=== PATIENT | male | born 1980 | race Caucasian/White ===

== ENCOUNTER 2021-12-08 13:58 | Emergency (ER) | payer OTHER, SELFPAY ==
[2021-12-08 14:31] VITALS: BP 181/112; PULSE 108; RESP 24; TEMP 36.7; O2SAT 96; BMI 27.3
--- NOTE | 2021-12-08 14:44 | DI.CT.S_ITS ---
PROCEDURE: CT HEAD/BRAIN WO CON INDICATIONS: Trauma TECHNIQUE: Noncontrast 4.5 mm thick angled axial sections acquired from the foramen magnum to the vertex, with coronal and sagittal reformats. For radiation dose reduction, the following was used: automated exposure control, adjustment of mA and/or kV according to patient size. COMPARISON: None. FINDINGS: Image quality: Excellent. CSF spaces: Basal cisterns are patent. No extra-axial fluid collections. Ventricles are normal in size and shape. Brain: No midline shift. No intracranial masses or hemorrhage. Hollins-white matter interface is normal. Skull and face: Calvarium and visualized facial bones are intact, without suspicious lesions. Sinuses: Visualized sinuses and mastoids are clear. IMPRESSION: No acute intracranial abnormality. Dictated by: Corey Silva M.D. on 12/08/2021 at 14:13 Approved by: Corey Silva M.D. on 12/08/2021 at 14:15
--- NOTE | 2021-12-08 14:44 | DI.CT.S_ITS ---
PROCEDURE: CT CERVICAL SPINE WO CON INDICATIONS: Trauma TECHNIQUE: Noncontrast 3 mm thick sections acquired from the skull base to the T4 level. Sagittal and coronal reformats were then constructed. For radiation dose reduction, the following was used: automated exposure control, adjustment of mA and/or kV according to patient size. COMPARISON: None. FINDINGS: Image quality: Excellent. Bones: No acute fractures or dislocations. Visualized superior ribs are intact. Mild disc space narrowing degenerative endplate changes are seen at the C5-6 and C6-7 levels. There is mild multilevel facet and uncovertebral joint hypertrophy. Soft tissues: Prevertebral soft tissues are normal in thickness. No paravertebral hematomas. No apical pneumothoraces. IMPRESSION: No acute cervical spine fracture or subluxation. Mild spondylosis. Dictated by: Corey Silva M.D. on 12/08/2021 at 14:15 Approved by: Corey Silva M.D. on 12/08/2021 at 14:17
--- NOTE | 2021-12-08 14:44 | DI.CT.S_ITS ---
PROCEDURE: CT CHEST W CON INDICATIONS: hit in neck by tree he was cutting, C7/T1 pain TECHNIQUE: After the administration of intravenous contrast, 5 mm thick sections acquired from the pulmonary apices to the posterior costophrenic angles. 1 mm axial lung, 5 mm thick coronal and sagittal reformats and 7 mm axial MIP were acquired. For radiation dose reduction, the following was used: automated exposure control, adjustment of mA and/or kV according to patient size. COMPARISON: None. FINDINGS: Image quality: Excellent. Lungs and pleura: No acute air space opacities. A 5 mm nodule is seen in the left upper lobe (194/4). No pleural effusions or pneumothorax. Central and peripheral airways are patent and normal in caliber. Mediastinum: Heart size is normal. No pericardial effusion. No mediastinal or hilar adenopathy by size criteria. Thoracic aorta and central pulmonary arteries are normal in size. Foci of air within the right ventricle and main pulmonary artery are most likely related to intravenous saccular access. Esophagus is normal in caliber. No hiatal hernia. Bones and chest wall: No suspicious bony lesions. No vertebral body compression fractures. No axillary or supraclavicular adenopathy by size criteria. Thyroid is unremarkable. Abdomen: Visualized upper abdominal solid organs appear normal. Upper abdominal bowel loops are normal in caliber. IMPRESSION: 1. No acute traumatic findings in the chest. 2. Incidental 5 mm left upper lobe pulmonary nodule. If the patient is at an increased risk for pulmonary malignancy, an optional follow-up CT could be performed in 12 months. Dictated by: Corey Silva M.D. on 12/08/2021 at 14:17 Approved by: Corey Silva M.D. on 12/08/2021 at 14:24
--- NOTE | 2021-12-08 14:45 | ED.HEATRA ---
HPI - Head Injury General Chief complaint: Trauma Stated complaint: FALLING TREES HIT HEAD AND SHOULDERS Time Seen by Provider: 12/08/21 14:33 Source: patient Mode of arrival: Ambulatory Limitations: no limitations History of Present Illness HPI Narrative: This is a 41-year-old male with no known medical history with complaint of tree falling on his right cervical region. Patient states he was cutting a tree that was approximately inches in diameter, patient states it actually broke about 6 ft above where he was cutting the tree and that portion fell landing across cervical upper thoracic region has abrasion, he has pain sort of at the C7-T1 region. This occurred yesterday during the daytime. Patient states he had instant numbness down both upper extremities and was forced forward hitting his head on his knee he states he sort of blacked out for a 2nd or 2. He states the numbness and tingling lasted for about 20 seconds and then resolved patient states since then no additional numbness, no tingling no weakness in his extremities he is had normal range of motion, he never had any loss of bowel or bladder control. He is had a little level headache, he says he has pain at C7-T1 region. Denies any chest pain or shortness of breath, has had some nausea but no vomiting, some slight dizziness initially. No abdominal back or flank pain. Normal gait. No other GI or urinary symptoms. Patient denies any anticoagulants, no daily medications. Sat hernia repair. No known drug allergies. No alcohol recently. Patient is unsure of his tetanus. He noticed some bruising across his upper back. Went to work after this occurred and presents today. Review of Systems Review of Systems ROS Unobtainable: All systems reviewed & are unremarkable except as noted in HPI and below Exam Narrative Exam Narrative: GEN: C-collar in ED. Patient appears in mild distress. HEAD: No evidence of trauma, no raccoon/Mendoza sign. NECK: Nontender, painless range of motion, trachea midline Positive Nexus criteria, there has been line line tenderness at C7-T1, no distracting injury, altered mental status, neuro deficit, recent EtOH. Patient does have some slight bruising abrasion across the upper thoracic region no hematoma appreciated. EYES: PERRLA, EOMI ENT: External inspection normal, trachea is midline, TM's are normal no hemotypanum, Nares are clear, no septal hematoma, no dental or oral injury, airway is normal and with normal occlusion, No bony tenderness RESP: Chest is nontender and has symmetric movement, no ecchymosis, breath sounds are normal no crackles, wheezes or rales CVS: Heart sounds are normal, no murmur noted, No JVD. ABG/GI: Nontender, soft, normal bowel sounds, no distention, no organomegaly, pelvic rock is negative NEURO: Oriented AOx3, neuro is grossly intact, sensation and motor is normal all 4 extremities moving, cranial nerves II through XII are intact, GCS is 15 PSYCH: Normal mood and affect SKIN: Intact, warm and dry, no crepitus and without decubitus BACK: No CVA tenderness, no vertebral tenderness, no step-off's, no crepitus EXT: Atraumatic, hips are nontender, no pedal edema, normal color and temperature, normal range of motion of extremities with normal tendon exam, 2+ pulses in all four extremities Initial Vital Signs Initial Vital Signs: Vital Signs Temperature 98.0 F 12/08/21 14:31 Pulse Rate 108 H 12/08/21 14:31 Respiratory Rate 24 12/08/21 14:31 Blood Pressure 181/112 H 12/08/21 14:31 Pulse Oximetry 96 12/08/21 14:31 Oxygen Delivery Method 12/08/21 14:31 Course Orders Ordered: ED Orders 12/08/21 14:44 CT cervical spine wo con Stat CT chest w con Stat CT head/brain wo con Stat 12/08/21 14:45 Complete Blood Count AUTO DIFF Stat Comprehensive Metabolic Panel Stat Ethanol (ETOH) Stat Lipase Stat Partial Thromboplastin Time Stat Prothrombin Time INR Stat Type and Screen Stat Discontinued Medications Diphtheria/Tetanus/Acell Pertussis (Tet,Diph,Pertuss(Acell),Vac/Pf 0.5 Ml Syringe) 0.5 ml IM .ONCE ONE Stop: 12/08/21 15:11 Last Admin: 12/08/21 15:54 Dose: 0.5 ml Documented By: CAROLYN Ketorolac Tromethamine (Ketorolac 30 Mg/Ml Vial) 15 mg IV NOW ONE Stop: 12/08/21 15:44 Last Admin: 12/08/21 15:54 Dose: 15 mg Documented By: CAROLYN Vital Signs Vital signs: Vital Signs - 8 hr 12/08/21 14:31 12/08/21 16:08 12/08/21 16:07 Temperature 98.0 F Pulse Rate 108 H 60 48 L Respiratory Rate 24 18 18 Blood Pressure 181/112 H 177/93 H Pulse Oximetry 96 98 98 Oxygen Delivery Method Room Air Room Air 12/08/21 16:10 12/08/21 16:10 Temperature Pulse Rate 46 L Respiratory Rate 12 Blood Pressure 133/81 Pulse Oximetry 100 Oxygen Delivery Method MDM - Head Injury Lab Data Result diagrams: 12/08/21 14:45 12/08/21 14:45 Labs: Lab Results 12/08/21 12/08/21 12/08/21 Range/Units 14:45 14:45 14:45 WBC 11.9 H (4.5-11.0) X10^3/uL RBC 5.07 (4.5-5.9) X10^6/uL Hgb 14.8 (13.5-17.5) g/dL Hct 43.4 (41-53) % MCV 85.7 (80-100) fL MCH 29.2 (26-34) PG MCHC 34.1 (30-36) % RDW 13.6 (11.6-14.8) % Plt Count 259 (150-400) X10^3/uL Neut % (Auto) 75.8 H (50-75) % Lymph % (Auto) 17.8 L (25-40) % Schuyler % (Auto) 5.7 (3-14) % Eos % (Auto) 0.2 L (2-4) % Baso % (Auto) 0.5 (0-2) % Neut # (Auto) 9100 H (6955-3217) /uL Lymph # (Auto) 2100 (5882-8678) /uL Schuyler # (Auto) 700 (0-900) /uL Eos # (Auto) 0 (0-450) /uL Baso # (Auto) 100 (0-100) /uL PT 13.7 H (10.1-12.7) SECONDS INR 1.2 (0.9-1.3) APTT 30 (26-36) SECONDS Sodium 141 (137-145) mmol/L Potassium 3.7 (3.4-5.1) mmol/L Chloride 105 (98-107) mmol/L Carbon Dioxide 25 (22-32) mmol/L BUN 10 (9-20) mg/dL Creatinine 0.79 (0.66-1.25) mg/dL Estimated GFR > 60 (>60) mL/min BUN/Creatinine Ratio 12.7 (6-22) Glucose 100 (70-100) mg/dL Calcium 9.5 (8.4-10.2) mg/dL Total Bilirubin 0.7 (0.2-1.3) mg/dL AST 34 (17-59) IU/L ALT 23 (<50) IU/L Alkaline Phosphatase 65 (38-126) U/L Total Protein 8.0 (6.3-8.2) g/dL Albumin 4.7 (3.5-5.0) g/dL Globulin 3.3 (1.7-4.1) g/dL Albumin/Globulin Ratio 1.4 (1.0-2.8) Lipase 132 (23-300) U/L Ethyl Alcohol < 10 ( - 10) mg/dL Blood Type Antibody Screen 12/08/21 Range/Units 14:45 WBC (4.5-11.0) X10^3/uL RBC (4.5-5.9) X10^6/uL Hgb (13.5-17.5) g/dL Hct (41-53) % MCV (80-100) fL MCH (26-34) PG MCHC (30-36) % RDW (11.6-14.8) % Plt Count (150-400) X10^3/uL Neut % (Auto) (50-75) % Lymph % (Auto) (25-40) % Schuyler % (Auto) (3-14) % Eos % (Auto) (2-4) % Baso % (Auto) (0-2) % Neut # (Auto) (0454-1222) /uL Lymph # (Auto) (5304-3840) /uL Schuyler # (Auto) (0-900) /uL Eos # (Auto) (0-450) /uL Baso # (Auto) (0-100) /uL PT (10.1-12.7) SECONDS INR (0.9-1.3) APTT (26-36) SECONDS Sodium (137-145) mmol/L Potassium (3.4-5.1) mmol/L Chloride (98-107) mmol/L Carbon Dioxide (22-32) mmol/L BUN (9-20) mg/dL Creatinine (0.66-1.25) mg/dL Estimated GFR (>60) mL/min BUN/Creatinine Ratio (6-22) Glucose (70-100) mg/dL Calcium (8.4-10.2) mg/dL Total Bilirubin (0.2-1.3) mg/dL AST (17-59) IU/L ALT (<50) IU/L Alkaline Phosphatase (38-126) U/L Total Protein (6.3-8.2) g/dL Albumin (3.5-5.0) g/dL Globulin (1.7-4.1) g/dL Albumin/Globulin Ratio (1.0-2.8) Lipase (23-300) U/L Ethyl Alcohol ( - 10) mg/dL Blood Type A Positive Antibody Screen Negative Imaging Data CT scan - head: Radiologist's Impression: [address] [address] [address] Scan Report Signed Patient: Sohan Huddleston MR#: [id number] : 1980 Acct:[id number] Age/Sex: 41 / M Date of Service: 12/08/21 Loc: ED Accession Number: [id number] ?? Procedure: CT head/brain wo con Ordering Provider: Angle Gerard D.O. PROCEDURE:? CT HEAD/BRAIN WO CON ? INDICATIONS:? Trauma ? TECHNIQUE:? Noncontrast 4.5 mm thick angled axial sections acquired from the foramen magnum to the vertex, with coronal and sagittal reformats.? For radiation dose reduction, the following was used:? automated exposure control, adjustment of mA and/or kV according to patient size.? ? COMPARISON:? None. ? FINDINGS:? Image quality:? Excellent.? ? CSF spaces:? Basal cisterns are patent.? No extra-axial fluid collections.? Ventricles are normal in size and shape.? ? Brain:? No midline shift.? No intracranial masses or hemorrhage.? Hollins-white matter interface is normal.? ? Skull and face:? Calvarium and visualized facial bones are intact, without suspicious lesions.? ? Sinuses:? Visualized sinuses and mastoids are clear.? ? IMPRESSION:? No acute intracranial abnormality. ? ? Dictated by: Corey Silva M.D. on 12/08/2021 at 14:13 ? ? Approved by: Corey Silva M.D. on 12/08/2021 at 14:15?? CT scan - chest: Radiologist's Impression: [address] [address] [address] Scan Report Signed Patient: Sohan Huddleston MR#: [id number] : 1980 Acct:[id number] Age/Sex: 41 / M Date of Service: 12/08/21 Loc: ED Accession Number: [id number] ?? Procedure: CT head/brain wo con Ordering Provider: Angle Gerard D.O. PROCEDURE:? CT HEAD/BRAIN WO CON ? INDICATIONS:? Trauma ? TECHNIQUE:? Noncontrast 4.5 mm thick angled axial sections acquired from the foramen magnum to the vertex, with coronal and sagittal reformats.? For radiation dose reduction, the following was used:? automated exposure control, adjustment of mA and/or kV according to patient size.? ? COMPARISON:? None. ? FINDINGS:? Image quality:? Excellent.? ? CSF spaces:? Basal cisterns are patent.? No extra-axial fluid collections.? Ventricles are normal in size and shape.? ? Brain:? No midline shift.? No intracranial masses or hemorrhage.? Hollins-white matter interface is normal.? ? Skull and face:? Calvarium and visualized facial bones are intact, without suspicious lesions.? ? Sinuses:? Visualized sinuses and mastoids are clear.? ? IMPRESSION:? No acute intracranial abnormality. ? ? Dictated by: Corey Silva M.D. on 12/08/2021 at 14:13 ? ? Approved by: Corey Silva M.D. on 12/08/2021 at 14:15?? CT - cervical spine: Radiologist's Impression: [address] [address] [address] Scan Report Signed Patient: Sohan Huddleston MR#: [id number] : 1980 Acct:[id number] Age/Sex: 41 / M Date of Service: 12/08/21 Loc: ED Accession Number: [id number] ?? Procedure: CT cervical spine wo con Ordering Provider: Angle Gerard D.O. PROCEDURE:? CT CERVICAL SPINE WO CON ? INDICATIONS:? Trauma ? TECHNIQUE:? Noncontrast 3 mm thick sections acquired from the skull base to the T4 level.? Sagittal and coronal reformats were then constructed.? For radiation dose reduction, the following was used:? automated exposure control, adjustment of mA and/or kV according to patient size.? ? COMPARISON:? None. ? FINDINGS:? Image quality:? Excellent.? ? Bones:? No acute fractures or dislocations.? Visualized superior ribs are intact.? Mild disc space narrowing degenerative endplate changes are seen at the C5-6 and C6-7 levels.? There is mild multilevel facet and uncovertebral joint hypertrophy. ? Soft tissues:? Prevertebral soft tissues are normal in thickness.? No paravertebral hematomas.? No apical pneumothoraces.? ? IMPRESSION:? No acute cervical spine fracture or subluxation.? Mild spondylosis. ? ? ? Dictated by: Corey Silva M.D. on 12/08/2021 at 14:15 ? ? Approved by: Corey Silva M.D. on 12/08/2021 at 14:17? MDM Narrative Medical decision making narrative: This is a 41-year-old male who had a significant injury with 12-14 in diameter portion of a tree that fell directly across his lower cervical upper thoracic back he has abrasion he has point tenderness over the C7-T1 region. Patient had head CT C-spine and thoracic chest CT obtained which shows no bony change. Your exam his exam is otherwise reassuring, he had numbness tingling immediately after for 20 seconds which resolved and has not had any other acute neurologic changes. Patient C-spine was cleared, he was noted to have a pulmonary nodule he does use tobacco discussed follow-up in 12 months. Does not have primary care but will establish. Lab work otherwise does not show major abnormalities. Patient defers anything stronger than Tylenol ibuprofen at home. Discharge Plan Departure Patient Disposition: Home Clinical Impression: Back pain, thoracic, Left upper lobe pulmonary nodule Instructions: DI for Thoracic Back Pain Activity Restrictions/Additional Instructions: Your imaging today of your head, cervical and thoracic spine is reassuring. You do have a pulmonary nodule on the left with your history of tobacco use CT recommended to be repeated in 1 year or 12 months. Follow-up with primary care physician to help establish and have this ordered. You may take Tylenol up to a 1000 mg every 6 hours and/or ibuprofen up to 600 mg every 6 hours as needed for pain. Please return for rapidly worsening pain, new numbness, tingling weakness loss of sensation, loss of bowel or bladder control, passing out or other new or concerning changes. Referrals: Miscellaneous,Doctor, MD [Primary Care Provider] - Stand Alone Forms: Work Release Note Visit Report Forms: Patient Portal/API
[2021-12-08 15:10] LABS: Add Manual Diff / Slide Review NO; Basophils Absolute Auto 100 /uL (0-100); Basophils Percent Auto 0.5 % (0-2); Eosinophils Absolute Auto 0 /uL (0-450); Eosinophils Percent Auto 0.2 % (2-4); Hematocrit 43.4 % (41-53); Hemoglobin 14.8 g/dL (13.5-17.5); Lymphocytes Absolute Auto 2100 /uL (1100-4500); Lymphocytes Percent Auto 17.8 % (25-40); Mean Corpuscular HGB Conc 34.1 % (30-36); Mean Corpuscular Hemoglobin 29.2 PG (26-34); Mean Corpuscular Volume 85.7 fL (80-100); Monocytes Absolute Auto 700 /uL (0-900); Monocytes Percent Auto 5.7 % (3-14); Neutrophils Absolute Auto 9100 /uL (1500-7000); Neutrophils Percent Auto 75.8 % (50-75); Platelet Count 259 X10^3/uL (150-400); Red Blood Cell Count 5.07 X10^6/uL (4.5-5.9); Red Cell Distribution Width 13.6 % (11.6-14.8); White Blood Cell Count 11.9 X10^3/uL (4.5-11.0)
[2021-12-08 15:11] LABS: Alanine Aminotransferase 23 IU/L (<50); Albumin 4.7 g/dL (3.5-5.0); Albumin Globulin Ratio 1.4 (1.0-2.8); Alkaline Phosphatase 65 U/L (38-126); Aspartate Aminotransferase 34 IU/L (17-59); BUN Creatinine Ratio 12.7 (6-22); Bilirubin Total 0.7 mg/dL (0.2-1.3); Blood Urea Nitrogen 10 mg/dL (9-20); Calcium 9.5 mg/dL (8.4-10.2); Carbon Dioxide 25 mmol/L (22-32); Chloride 105 mmol/L (98-107); Estimated Glomerular Filt Rate > 60 mL/min (>60); Ethanol (ETOH) < 10 mg/dL; Globulin 3.3 g/dL (1.7-4.1); Glucose 100 mg/dL (70-100); HEMOLYSIS 16 (0-50); Lipase 132 U/L (23-300); Potassium 3.7 mmol/L (3.4-5.1); Sodium 141 mmol/L (137-145)
[2021-12-08 15:21] LABS: INR 1.2 (0.9-1.3); Prothrombin Time 13.7 SECONDS (10.1-12.7)
[2021-12-08 15:23] LABS: PTT Partial Thromboplastin Tim 30 SECONDS (26-36)
--- NOTE | 2021-12-08 15:36 | PC.NURSE ---
c-collar removed @ [address] Gerard
[2021-12-08] MEDS: KETOROLAC 30 MG/ML VIAL 15 MG IV (15:54)
[2021-12-08] MEDS: TET,DIPH,PERTUSS(ACELL),VAC/PF 0.5 ML SYRINGE IM (15:54)
[2021-12-08 16:07] VITALS: PULSE 48; RESP 18; O2SAT 98
[2021-12-08 16:08] VITALS: BP 177/93; PULSE 60; RESP 18; O2SAT 98
[2021-12-08 16:10] VITALS: BP 133/81; PULSE 46; RESP 12; O2SAT 100
== END 2021-12-08 16:41 | disposition home or self-care (01) ==
PROVIDERS: Emergency Provider Emergency Medicine
DX: M54.6 Pain in thoracic spine (principal); W14.XXXA Fall from tree, initial encounter; Z23 Encounter for immunization
CPT/HCPCS: 36415; 70450; 71260; 72125; 80053; 80320; 83690; 85025; 85610; 85730; 86850; 86900; 86901; 90471; 96374; 99284; 90715; J1885; Q9967

== ENCOUNTER 2024-12-07 08:20 | Emergency (ER) | payer OTHER, SELFPAY ==
[2024-12-07 08:25] VITALS: BP 147/85; PULSE 69; RESP 16; TEMP 36.4; O2SAT 98; BMI 31.0
--- NOTE | 2024-12-07 08:30 | DI.RAD.S_ITS ---
PROCEDURE: XR HAND RT MIN 3V INDICATIONS: pain/injury TECHNIQUE: 3 views of the hand(s) acquired. COMPARISON: None. FINDINGS: Bones: No fractures or dislocations. Carpal bones are normally aligned. No suspicious bony lesions. Soft tissues: No suspicious soft tissue calcifications. IMPRESSION: No acute bony abnormality. Dictated by: Aylin Chambers MD, PhD on 12/07/2024 at 9:19 Approved by: Aylin Chambers MD, PhD on 12/07/2024 at 9:19
--- NOTE | 2024-12-07 10:25 | PC.NURSE ---
Swelling and redness noted to posterior right hand. Pt has limited mobility.
--- NOTE | 2024-12-07 10:40 | ED.UPPEXIN ---
HPI - Extremity Injury (Upper) General Chief Complaint: Extremity Injury, Upper Stated Complaint: L&I smashed right hand Time Seen by Provider: 12/07/24 10:25 Source: patient, RN notes reviewed and old records reviewed Mode of arrival: Ambulatory Limitations: no limitations History of Present Illness HPI narrative: 44-year-old male notes smashed his right hand between 2 pieces of equipment at work last Thursday thought it was fine but last night's wanted to be felt a twinge and increased achiness and pain today. Patient states he smashed his hand between a boat and a forklift 8 days ago. He states that they responded very quickly did not have any breakdown of the skin. Patient states had pain but it has been improving. He notes it is increased when he flexes of the wrist. Yesterday he was swatting at a bee flipping his hand back and forth and felt an increase in pain with flexion of the wrist. Patient states he was not stung. States it is still little bit sore. He feels a little bit of a ridge on the back of his hand. He denies any other numbness, tingling or weakness. States he has been working and using his hand regularly since the incident. Denies any other injuries. States no daily medications. No known drug allergies. Related Data Allergies Allergy/AdvReac Type Severity Reaction Status Date / Time No Known Drug Allergies Allergy Verified 12/07/24 08:26 Review of Systems Review of Systems ROS Unobtainable: All systems reviewed & are unremarkable except as noted in HPI and below Patient History Social History Smoking Status: Former smoker Smoking Status: Former smoker Exam Narrative Exam Narrative: GENERAL: Alert and oriented x three, mild distress HEENT: Head normocephalic, atraumatic, EOMI, pupils reactive, face symmetric, moist mucous membranes NECK: Supple, full range of motion EXTREMITIES: Normal range of motion, no clubbing or edema. Neurovascularly intact. Patient has some mild tenderness of the proximal 3rd metacarpal, no obvious deformity, no warmth erythema or skin changes. No bruising. Patient has full range of motion. No other bony tenderness on exam. No numbness tingling or weakness. 2+ radial pulse with cap refill less than 2 seconds in all 5 fingers. NEUROLOGICAL: Cranial nerves II through XII grossly intact. Moving all extremities SKIN: Warm, dry, no petechiae, no rashes or lesions. Initial Vital Signs Initial Vital Signs: Vital Signs Temperature 97.6 F 12/07/24 08:25 Pulse Rate 69 12/07/24 08:25 Respiratory Rate 16 12/07/24 08:25 Blood Pressure 147/85 H 12/07/24 08:25 Pulse Oximetry 98 12/07/24 08:25 Oxygen Delivery Method Room Air 12/07/24 08:25 Course Orders Ordered: ED Orders 12/07/24 11:01 Consult to [facility] Stat Vital Signs Vital signs: Vital Signs - 8 hr 12/07/24 11:19 Pulse Rate 68 Respiratory Rate 16 Blood Pressure 132/85 Pulse Oximetry 98 Oxygen Delivery Method Room Air MDM - Extremity Injury (Upper) MDM Narrative Medical decision making narrative: Right Hand x-ray shows no acute bony abnormality Patient is 8 days from having crush injury between a forklift and a boat, no obvious external changes, right hand x-ray is negative he notes when he was swatting at a be he was not stung but with flexion had increased pain on the dorsum of the hand at the proximal metacarpal. We will place in the splint and have patient follow up with orthopedics. L and I paperwork was completed. Discharge Plan Departure Patient Disposition: Home Clinical Impression: Sprain and strain of wrist Instructions: DI for Wrist Sprain Activity Restrictions/Additional Instructions: Follow up with Orthopedic surgery if you are having persistent symptoms. You can remove the splint to wash but otherwise use it to prevent movement of the wrist and hand. Splint Care: Keep splint clean and dry. Elevated affected body part to decrease swelling. OK to use ice pack on the affected body part. Use for 15-20 minutes each time, for 5-6x per day. If you develop worsening pain, numbness, tingling, discoloration of the affected body part, loosen the splint by loosening the WILLA wrap, and either see your doctor for an urgent re-assessment, or return to the Emergency Department. Return to the Emergency Department for any new or worsening symptoms. Referrals: Sarah Gusman DO [Physician, Orthopedic Surgery] Stand Alone Forms: Patient Portal/API, Work Release Note
[2024-12-07 11:19] VITALS: BP 132/85; PULSE 68; RESP 16; O2SAT 98
== END 2024-12-07 11:28 | disposition home or self-care (01) ==
PROVIDERS: Emergency Provider Emergency Medicine
DX: S63.501A Unspecified sprain of right wrist, initial encounter (principal); S66.911A Strain of unspecified muscle, fascia and tendon at wrist and hand level, right hand, initial encounter; W23.0XXA Caught, crushed, jammed, or pinched between moving objects, initial encounter
CPT/HCPCS: 73130; 99283